=== PATIENT | female | born 1960 | race Caucasian/White ===

== ENCOUNTER → 2025-07-03 | Outpatient (CLI) | payer MEDICARE, OTHER, SELFPAY ==
[2025-07-03 12:58] VITALS: BP 163/76; PULSE 82; RESP 18; O2SAT 96; BMI 50.8
[2025-07-03] MEDS: Nitroglycerin SL (ED/IMG/CATH) 0.4 MG TABLET SL (13:26)
[2025-07-03] MEDS: 0.9% Saline Lock 10 ML Syringe IV (13:34)
[2025-07-03 13:44] VITALS: BP 153/85; PULSE 86; RESP 18; O2SAT 93
== END | disposition home or self-care (01) ==
LOC: CT 12:30
PROVIDERS: PCP Student in an Organized Health Care Education/Training Program
DX: R07.9 Chest pain, unspecified (principal)
CPT/HCPCS: 75574